=== PATIENT | female | born 1955 | race Caucasian/White ===

== ENCOUNTER 2024-03-26 23:29 | Emergency (ER) | payer MEDICARE, SELFPAY ==
--- NOTE | 2024-03-26 23:31 | ECG_ITS ---
Test Reason : PALPITATIONS Blood Pressure : / mmHG Vent. Rate : 141 BPM Atrial Rate : 000 BPM P-R Int : 000 ms QRS Dur : 096 ms QT Int : 306 ms P-R-T Axes : 000 003 099 degrees QTc Int : 468 ms Atrial fibrillation with rapid ventricular response Incomplete right bundle branch block ST depression, consider subendocardial injury Abnormal QRS-T angle, consider primary T wave abnormality Abnormal ECG No previous ECGs available Referred By: Generic ED Physician Electronically Signed By:JEAN CLAUDE MATTHEW MD
[2024-03-26 23:39] VITALS: BP 126/87; PULSE 111; RESP 16; TEMP 36.3; O2SAT 97; BMI 25.9
[2024-03-27] VITALS (7 sets, daily range): BP systolic 99–128; BP diastolic 66–100; PULSE 62–145; RESP 13–16; TEMP 36.4–36.8; O2SAT 97–98
[2024-03-27 00:02] LABS: MANUAL DIFF FLAG NO
[2024-03-27 00:17] LABS: Alanine Aminotransferase 16 U/L (0-31); Albumin Level 4.2 g/dL (3.5-5.0); Alkaline Phosphatase 79 U/L (39-117); Anion Gap 13 (12-20); Aspartate Amino Transferase 20 U/L (5-31); Bilirubin Total 0.4 mg/dL (0.0-1.0); Blood Urea Nitrogen 10 mg/dL (9-16); Calcium 9.3 mg/dL (8.4-10.2); Carbon Dioxide 24 mmol/L (22-29); Chloride 109 mmol/L (96-108); Creatinine Clr Calc Pharmacy 77.8; Estimated Glomerular Filt Rate > 60; Glucose Random 148 mg/dL (60-115); Potassium 3.2 mmol/L (3.3-5.1); Sodium 143 mmol/L (135-145); Total Protein 7.6 g/dL (6.5-8.0)
[2024-03-27 00:22] LABS: Basophils Absolute Auto 0.1 X10*3/uL (0.0-0.2); Basophils Percent Auto 0.8 % (0-2); Eosinophils Absolute Auto 0.1 X10*3/uL (0.0-0.4); Eosinophils Percent Auto 1.4 % (0-4); Hematocrit 38.4 % (37.0-47.0); Hemoglobin 12.9 g/dl (12.0-16.0); Imm Gran Abs Auto 0.01 X10*3/uL (0.00-0.03); Imm Gran Pct Auto 0.2 % (0.0-0.4); Lymphocytes Absolute Auto 2.2 X10*3/uL (1.2-4.9); Lymphocytes Percent Auto 33.2 % (20-40); Mean Corpuscular HGB Conc 33.6 g/dl (31.0-35.0); Mean Corpuscular Hemoglobin 30.6 pg (27.0-33.0); Mean Corpuscular Volume 91.2 fL (80.0-98.0); Mean Platelet Volume 10.1 fL (9.4-12.3); Monocytes Absolute Auto 0.5 X10*3/uL (0.1-1.2); Neutrophils Absolute Auto 3.7 x10*3/uL (2.0-8.3); Neutrophils Percent Auto 56.4 % (45-73); Platelet Count 299 X10*3/uL (160-400); Red Blood Count 4.21 X10*6/uL (4.20-5.50); Red Cell Distribution Width 13.1 % (11.0-16.0); White Blood Count 6.5 X10*3/uL (4.8-10.8)
[2024-03-27 00:25] LABS: Troponin-I High Sensitivity < 2.7 ng/L (<3.5-17.0)
--- NOTE | 2024-03-27 00:40 | MHC.EDTECH ---
This pct just assumed care of Patient ,Patient was change into hospital attire ,and hooked up to coffee supervisor ,Call sparrow within Pt reach .
[2024-03-27] MEDS: 0.9 % Sodium Chloride 1,000 ML 999 ML IV (00:47)
[2024-03-27] MEDS: dilTIAZem HCL 50 MG/10 ML VIAL 25 MG IVPUSH (00:50)
--- NOTE | 2024-03-27 00:51 | ED_ITS ---
HPI - General Adult General Chief complaint: Arrhythmia/Palpitations Stated complaint: palpatations Time Seen by Provider: 03/27/24 00:26 Source: patient, RN notes reviewed and old records reviewed Mode of arrival: ambulatory Limitations: no limitations History of Present Illness ED Provider: Radha ORANTES narrative: 69-year-old female presents for evaluation of palpitations. Patient reports about an hour prior to arrival she started to feel a fluttering in her chest She states that she has a history of atrial fibrillation 1 time over 10 years ago She reports that she was given Cardizem 25 mg IV and a L of fluid and ?I converted. She reports that she subsequently followed up with Cardiology and had an echocardiogram that was normal again, this was about 10 years ago Currently she denies any specific pain, denies any shortness of breath. Denies any leg swelling, recent travel Denies any history of DVT or PE Related Data Previous Rx's ?Medication ?Instructions ?Recorded diltiazem HCl 120 mg 120 mg PO DAILY #30 caps 03/27/24 capsule,extended release 24 hr (Cartia XT) Allergies Allergy/AdvReac Type Severity Reaction Status Date / Time No Known Allergies Allergy Verified 03/26/24 23:41 Review of Systems 2 Constitutional: Constitutional: Denies body ache(s), Denies chills and Denies fever(s) Eyes: Eyes: Denies blurry vision ENT: Denies vertigo and Denies dizziness Cardiovascular: Cardiovascular: Denies chest pain, Reports rapid heart rate, Reports irregular heart rhythm, Reports palpitations and Denies dyspnea Respiratory: Respiratory: Denies cough and Denies dyspnea Gastrointestinal: Gastrointestinal: Denies abdominal pain, Denies nausea and Denies vomiting Musculoskeletal: Musculoskeletal: Denies back pain Integumentary/Breasts: Skin/Breast: Denies rash Neurologic: Denies vertigo and Denies dizziness Psychiatric: Psychiatric: Denies anxiety Endocrine: Endocrine: Reports palpitations PMFSH Social History Social History Advance Directives: No Do you have a plan to hurt others: No Plan Physical Exam ED Vital Signs: Vital Signs - 24 hr 03/26/24 23:39 03/27/24 00:39 03/27/24 00:50 Temperature 97.3 F 97.6 F Pulse Rate 111 H 145 H 137 H Respiratory Rate 16 16 Blood Pressure 126/87 128/100 H 128/100 H Pulse Oximetry 97 98 Oxygen Delivery Method Room Air Room Air 03/27/24 01:44 03/27/24 01:48 03/27/24 01:58 Temperature 98.2 F Pulse Rate 138 H 109 H 131 H Respiratory Rate 13 14 Blood Pressure 105/76 101/74 Pulse Oximetry 97 Oxygen Delivery Method Room Air BMI result Body Mass Index 25.9 Const General: healthy appearing, comfortable, no acute distress, alert and awake Nutritional Appearance: well nourished Orientation/consciousness: patient oriented x3 HENMT Head: Yes normocephalic and Yes atraumatic Eyes Eyelids: Yes eyelids normal Conjunctivae: conjunctivae normal Sclerae: sclerae normal Corneas: corneas normal Pupils: Equal, round and reactive pupils present EOM: EOMs intact bilaterally Neck Neck: Yes full ROM Resp Effort & Inspection: normal respiratory effort, able to speak in complete sentences, no audible wheezes and not labored Auscultation: clear to auscultation bilaterally Cardio Rate: tachycardic Rhythm: abnormal rhythm and regular rhythm GI Inspection: No distended Palpation (GI): Soft to palpation, not firm, nontender, no guarding and not rigid Skin General skin exam: elasticity normal Neuro General: patient oriented x3 Cranial nerves: Yes Equal, round and reactive pupils present and Yes Bilaterally intact EOM present Cognition (Neuro): normal cognition Extrem Other: Moving all extremities well without any obvious deformities Course Reevaluation(s) Reevaluation #1: Patient received Cardizem IV twice with improvement in her rate but there was no conversion. Discussed with the attending, Dr Vazquez who recommends flecainide 300 mg once as the patient's symptoms started within an hour of arrival. Time: 02:14 Reevaluation #2: Patient's rhythm appears to convert back to sinus rhythm after flecainide. Plan for repeat EKG. The patient feels well has no complaints. She has a establish cardiology with Dr. Brennan in [place]. Plan to discharge the patient with Cardizem 120 mg sustained release and she will follow up with Cardiology Time: 02:42 Medications Administered Discontinued Medications Generic Name Dose Route Start Last Admin Trade Name Freq PRN Reason Stop Dose Admin Diltiazem HCl 25 mg 03/27/24 00:39 03/27/24 00:50 Diltiazem Hcl 50 Mg/10 Ml Vial IVPUSH 03/27/24 00:40 25 mg STAT STA Administration Diltiazem HCl 20 mg 03/27/24 01:39 03/27/24 01:44 Diltiazem Hcl 50 Mg/10 Ml Vial IVPUSH 03/27/24 01:40 20 mg STAT STA Administration Flecainide Acetate 300 mg 03/27/24 01:35 03/27/24 02:10 Flecainide Acetate 50 Mg Tablet PO 03/27/24 01:36 300 mg ONCE ONE Administration Sodium Chloride 1,000 mls @ 999 mls/hr 03/27/24 00:45 03/27/24 02:12 Ns IV 03/27/24 01:45 Infused .Q1H1M BLAZE Infusion Potassium Chloride 40 meq 03/27/24 00:51 03/27/24 01:39 Potassium Chloride Er 20 Meq Tab.Er.Prt PO 03/27/24 00:52 40 meq ONCE ONE Administration Medical Decision Making Medical Decision Making MDM Narrative: 69-year-old female presents for evaluation of palpitations. Her triage EKG shows rapid AFib at 141bpm. She does have a history of this. She is not currently anticoagulated or on any antiarrhythmic medications. Labs are reassuring. Her potassium was low at 3.2 and this was repleted. We will treat with Cardizem 25 mg IV and a L of fluid and re-evaluate. The patient has converted to sinus rhythm with this in the past Differential Diagnosis Differential Diagnoses: The differential diagnosis associated with the presentation includes Atrial fibrillation with RVR Supraventricular tachycardia Arrhythmia Tachycardia Lab Data [facility] Lab Attestation statement: I reviewed the patient's lab results. No leukocytosis or anemia. Normal platelet count. Electrolytes are significant for a potassium of 3.2, chloride just above normal at 109. Glucose is random at 1:48 a.m., no evidence of DKA 03/26/24 23:58 03/26/24 23:58 Labs: Lab Results 03/26/24 Range/Units 23:58 WBC 6.5 (4.8-10.8) X10*3/uL RBC 4.21 (4.20-5.50) X10*6/uL Hgb 12.9 (12.0-16.0) g/dl Hct 38.4 (37.0-47.0) % MCV 91.2 (80.0-98.0) fL MCH 30.6 (27.0-33.0) pg MCHC 33.6 (31.0-35.0) g/dl RDW 13.1 (11.0-16.0) % Plt Count 299 (160-400) X10*3/uL MPV 10.1 (9.4-12.3) fL Immature Gran % (Auto) 0.2 (0.0-0.4) % Neut % (Auto) 56.4 (45-73) % Lymph % (Auto) 33.2 (20-40) % [place] % (Auto) 8.0 (2-11) % Eos % (Auto) 1.4 (0-4) % Baso % (Auto) 0.8 (0-2) % Lymph # (Auto) 2.2 (1.2-4.9) X10*3/uL [place] # (Auto) 0.5 (0.1-1.2) X10*3/uL Eos # (Auto) 0.1 (0.0-0.4) X10*3/uL Baso # (Auto) 0.1 (0.0-0.2) X10*3/uL Abs Immat Gran (auto) 0.01 (0.00-0.03) X10*3/uL Absolute Neuts (auto) 3.7 (2.0-8.3) x10*3/uL Absolute Nucleated RBC 0.000 (0.0-0.012) X10*3/uL Nucleated RBC % (auto) 0.0 (0.0-0.2) /100WBC Sodium 143 (135-145) mmol/L Potassium 3.2 L (3.3-5.1) mmol/L Chloride 109 H (96-108) mmol/L Carbon Dioxide 24 (22-29) mmol/L Anion Gap 13 (12-20) BUN 10 (9-16) mg/dL Creatinine 0.81 (0.5-1.4) mg/dL Estim Creat Clear Calc 77.8 Estimated GFR > 60 Random Glucose 148 H (60-115) mg/dL Calcium 9.3 (8.4-10.2) mg/dL Total Bilirubin 0.4 (0.0-1.0) mg/dL AST 20 (5-31) U/L ALT 16 (0-31) U/L Alkaline Phosphatase 79 (39-117) U/L Troponin I High Sens < 2.7 (<3.5-17.0) ng/L Total Protein 7.6 (6.5-8.0) g/dL Albumin 4.2 (3.5-5.0) g/dL Independent Interpretation I performed an independent interpretation of an: EKG Interpretation: Rapid AFib at 141 beats per minute Discharge Plan Discharge Clinical Impression: Atrial fibrillation with rapid ventricular response Patient Disposition: Home, Self-Care Instructions: A-fib (Atrial Fibrillation) (ED) Additional Instructions: Your workup in the ER today was reassuring. Your EKG showed atrial fibrillation. Your potassium was slightly low at 3.2, I recommend following up with your primary doctor for this. You were given a dose of Cardizem that did not change your rhythm back to normal. You were given a dose of flecainide that did convert you back to a sinus rhythm Follow-up with cardiology for your atrial fibrillation Return for new or worsening symptoms Prescriptions: New diltiazem HCl [Cartia XT] 120 mg capsule,extended release 24hr 120 mg PO DAILY Qty: 30 0RF Referrals: Kevin Brennan MD [Physician] - (a fib) Print Language: Libyan
[2024-03-27] MEDS: Potassium Chloride ER 20 MEQ TAB.ER.PRT 40 MEQ PO (01:39)
[2024-03-27] MEDS: dilTIAZem HCL 50 MG/10 ML VIAL 20 MG IVPUSH (01:44)
[2024-03-27] MEDS: Flecainide Acetate 50 MG TABLET 300 MG PO (02:10)
--- NOTE | 2024-03-27 02:39 | ECG_ITS ---
Test Reason : RYTHEM CHANGE Blood Pressure : / mmHG Vent. Rate : 059 BPM Atrial Rate : 059 BPM P-R Int : 190 ms QRS Dur : 108 ms QT Int : 424 ms P-R-T Axes : 074 -17 041 degrees QTc Int : 419 ms Sinus bradycardia Incomplete right bundle branch block Borderline ECG When compared with ECG of 26-MAR-2024 23:29, Sinus rhythm has replaced Atrial fibrillation Vent. rate has decreased BY [address] no longer depressed in Inferior leads ST no longer depressed in Anterolateral leads Referred By: Collin Garcia Electronically Signed By:JEAN CLAUDE MATTHEW MD
== END 2024-03-27 03:10 | disposition home or self-care (01) ==
PROVIDERS: Emergency Provider Internal Medicine; PCP Internal Medicine
DX: I48.20 Chronic atrial fibrillation, unspecified (principal); I49.9 Cardiac arrhythmia, unspecified; R00.2 Palpitations; Z79.899 Other long term (current) drug therapy
CPT/HCPCS: 36415; 80053; 84484; 85025; 93005; 96374; 96375; 96376; 99284

== ENCOUNTER → 2024-03-26 23:31 | Outpatient (BNV) | payer MEDICARE, SELFPAY | PROVIDERS: Emergency Provider Internal Medicine; PCP Internal Medicine; Visit Provider Internal Medicine Cardiovascular Disease | DX: R00.1 Bradycardia, unspecified (principal); I45.10 Unspecified right bundle-branch block | CPT/HCPCS: 93010 ==

== ENCOUNTER → 2024-03-27 02:39 | Outpatient (BNV) | payer MEDICARE, SELFPAY | PROVIDERS: Emergency Provider Internal Medicine; PCP Internal Medicine; Visit Provider Internal Medicine Cardiovascular Disease | DX: I45.10 Unspecified right bundle-branch block (principal); R00.1 Bradycardia, unspecified | CPT/HCPCS: 93010 ==

== ENCOUNTER 2024-12-22 03:02 | Emergency (ER) | payer MEDICARE, SELFPAY ==
--- NOTE | 2024-12-22 03:03 | ECG_ITS ---
Test Reason : RAPID HEART RATE Blood Pressure : */* mmHG Vent. Rate : 120 BPM Atrial Rate : * BPM P-R Int : * ms QRS Dur : 92 ms QT Int : 302 ms P-R-T Axes : * -3 13 degrees QTcB Int : 426 ms Atrial fibrillation with rapid ventricular response with premature ventricular or aberrantly conducted complexes Incomplete right bundle branch block Nonspecific ST abnormality Abnormal ECG When compared with ECG of 27-Mar-2024 02:45, Atrial fibrillation has replaced Sinus rhythm Vent. rate has increased by 61 bpm Referred By: Generic ED Physician Electronically Signed By: JAMEE LIGHT
[2024-12-22 03:09] VITALS: BP 130/75; PULSE 126; RESP 16; TEMP 36.3; O2SAT 98; BMI 25.1
[2024-12-22 03:17] VITALS: BP 130/75; PULSE 126; RESP 16; TEMP 36.3; O2SAT 98
--- NOTE | 2024-12-22 03:19 | PC.NURSE ---
pt came in from waiting room with heart palpitations, denies chest pain. states she has a fib and takes eliquis and cardizem. Took bot prescribed medications today. 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 Labs ordered, EKG performed.
[2024-12-22 03:31] LABS: MANUAL DIFF FLAG NO
[2024-12-22 03:32] LABS: Hematocrit 37.2 % (37.0-47.0); Hemoglobin 13.0 g/dl (12.0-16.0); Imm Gran Abs Auto 0.01 X10*3/uL (0.00-0.03); Imm Gran Pct Auto 0.1 % (0.0-0.4); Lymphocytes Absolute Auto 3.5 X10*3/uL (1.2-4.9); Mean Corpuscular HGB Conc 34.9 g/dl (31.0-35.0); Mean Corpuscular Hemoglobin 31.2 pg (27.0-33.0); Mean Corpuscular Volume 89.2 fL (80.0-98.0); NRBC Abs Auto 0.000 X10*3/uL (0.0-0.012); NRBC Pct Auto 0.0 /100WBC (0.0-0.2); Platelet Count 288 X10*3/uL (160-400); Red Blood Count 4.17 X10*6/uL (4.20-5.50); White Blood Count 6.7 X10*3/uL (4.8-10.8)
[2024-12-22 03:50] LABS: Alanine Aminotransferase 15 U/L (0-31); Albumin Level 4.3 g/dL (3.5-5.0); Alkaline Phosphatase 89 U/L (39-117); Anion Gap 14 (12-20); Aspartate Amino Transferase 22 U/L (5-31); Blood Urea Nitrogen 9 mg/dL (9-16); Calcium 9.0 mg/dL (8.4-10.2); Carbon Dioxide 25 mmol/L (22-29); Chloride 106 mmol/L (96-108); Creatinine Clr Calc Pharmacy 80.8; Estimated Glomerular Filt Rate > 60; Potassium 4.3 mmol/L (3.3-5.1); Sodium 141 mmol/L (135-145); Total Protein 7.4 g/dL (6.5-8.0)
[2024-12-22 04:01] LABS: Troponin-I High Sensitivity < 2.7 ng/L (<3.5-17.0)
--- NOTE | 2024-12-22 04:23 | ECG_ITS ---
Test Reason : ? a fib Blood Pressure : */* mmHG Vent. Rate : 74 BPM Atrial Rate : 74 BPM P-R Int : 190 ms QRS Dur : 96 ms QT Int : 380 ms P-R-T Axes : 49 -13 22 degrees QTcB Int : 421 ms Normal sinus rhythm Normal ECG When compared with ECG of 22-Dec-2024 03:00, Sinus rhythm has replaced Atrial fibrillation Vent. rate has decreased by 46 bpm Referred By: Generic ED Physician Electronically Signed By: JAMEE LIGHT
--- NOTE | 2024-12-22 07:08 | ED_ITS ---
HPI - General Adult General Chief complaint: Arrhythmia/Palpitations Stated complaint: rapid heart rate Time Seen by Provider: 12/22/24 07:08 History of Present Illness ED Provider: Cristian ORANTES narrative: The patient is a 69-year-old woman with a long history of intermittent paroxysmal atrial fibrillation. She is on diltiazem and apixaban. She says that she woke up this morning with a sense of fluttering in her chest associated with a sense of tachycardia. Her smart watch told her that her heart rate was 150. She brought herself to the emergency room. On arrival she was found to have atrial fibrillation. About an hour later while waiting in the emergency room she felt that her heart rate had normalized and she seemed to returned to a normal sinus rhythm. She has had no associated chest pain, shortness of breath, fever, sweats, chills, or other symptoms. No new pain or swelling in her legs. No shortness of breath. The the patient feels this episode is very similar to previous episodes in his very eager for discharge. She has a recent visit with her call center coordinator and had an unremarkable echocardiogram she says. Related Data Previous Rx's ?Medication ?Instructions ?Recorded diltiazem HCl 120 mg 120 mg PO DAILY #30 caps 03/10 capsule,extended release 24 hr (Cartia XT) Allergies Allergy/AdvReac Type Severity Reaction Status Date / Time No Known Allergies Allergy Verified 12/22/24 03:10 Review of Systems 2 Review of Systems: Yes all other systems are reviewed and are negative PMFSH Social History Social History Smoked in Last 30 Days: No Use of substances other than those prescribed or required for medical reasons: No Advance Directives: No Advance Directives Information Provided: Yes Physical Exam ED Vital Signs: Vital Signs - 24 hr 12/22/24 03:09 12/22/24 03:17 Temperature 97.3 F 97.3 F Pulse Rate 126 H 126 H Respiratory Rate 16 16 Blood Pressure 130/75 130/75 Pulse Oximetry 98 98 Oxygen Delivery Method Room Air Room Air BMI result Body Mass Index 25.1 Const General: cooperative, healthy appearing, comfortable and no acute distress Orientation/consciousness: patient oriented x3 HENMT Head: Yes normal to inspection Face and sinus: Yes normal facial exam Mouth: Normal oral and palatal mucosa present Eyes General: appearance normal, both eyes and all related structures Neck Neck: Yes normal visual inspection, Yes full ROM and Yes no JVD Resp Effort & Inspection: normal respiratory effort Auscultation: clear to auscultation bilaterally Cardio Rate: regular rate Rhythm: regular rhythm Heart sounds: S1 normal heart sound present and S2 normal heart sound present GI Other: Abdomen is soft and nontender Skin General skin exam: no rashes or lesions noted Neuro General: patient oriented x3, tone normal, moves all extremities, no focal motor deficits and CN's II-XI intact bilaterally Extrem Other: There is no calf swelling or tenderness. No asymmetry. No peripheral edema. Medical Decision Making Medical Decision Making [facility] Narrative: The patient is a 69-year-old woman who has a history of rare episodes of intermittent paroxysmal atrial fibrillation who was on diltiazem and apixaban. She awoke with symptoms of atrial fibrillation and came to the hospital. She was in atrial fibrillation with a rapid ventricular response on arrival but was otherwise stable. She was observed and spontaneously converted to a normal sinus rhythm with a normal EKG. She has waited for several hours post conversion to see a provider. She is eager for discharge. She looks entirely well. She should continue her medications of diltiazem and apixaban and stay in touch with the call center coordinator. Lab Data 12/22/24 03:27 12/22/24 03:27 Labs: Lab Results 12/22/24 Range/Units 03:27 WBC 6.7 (4.8-10.8) X10*3/uL RBC 4.17 L (4.20-5.50) X10*6/uL Hgb 13.0 (12.0-16.0) g/dl Hct 37.2 (37.0-47.0) % MCV 89.2 (80.0-98.0) fL MCH 31.2 (27.0-33.0) pg MCHC 34.9 (31.0-35.0) g/dl RDW 13.7 (11.0-16.0) % Plt Count 288 (160-400) X10*3/uL MPV 9.7 (9.4-12.3) fL Immature Gran % (Auto) 0.1 (0.0-0.4) % Neut % (Auto) 37.3 L (45-73) % Lymph % (Auto) 52.0 H (20-40) % [place] % (Auto) 7.6 (2-11) % Eos % (Auto) 2.4 (0-4) % Baso % (Auto) 0.6 (0-2) % Lymph # (Auto) 3.5 (1.2-4.9) X10*3/uL [place] # (Auto) 0.5 (0.1-1.2) X10*3/uL Eos # (Auto) 0.2 (0.0-0.4) X10*3/uL Baso # (Auto) 0.0 (0.0-0.2) X10*3/uL Abs Immat Gran (auto) 0.01 (0.00-0.03) X10*3/uL Absolute Neuts (auto) 2.5 (2.0-8.3) x10*3/uL Absolute Nucleated RBC 0.000 (0.0-0.012) X10*3/uL Nucleated RBC % (auto) 0.0 (0.0-0.2) /100WBC Sodium 141 (135-145) mmol/L Potassium 4.3 D (3.3-5.1) mmol/L Chloride 106 (96-108) mmol/L Carbon Dioxide 25 (22-29) mmol/L Anion Gap 14 (12-20) BUN 9 (9-16) mg/dL Creatinine 0.78 (0.5-1.4) mg/dL Estim Creat Clear Calc 80.8 Estimated GFR > 60 Random Glucose 111 (60-115) mg/dL Calcium 9.0 (8.4-10.2) mg/dL Total Bilirubin 0.7 (0.0-1.0) mg/dL AST 22 (5-31) U/L ALT 15 (0-31) U/L Alkaline Phosphatase 89 (39-117) U/L Troponin I High Sens < 2.7 (<3.5-17.0) ng/L Total Protein 7.4 (6.5-8.0) g/dL Albumin 4.3 (3.5-5.0) g/dL Independent Interpretation I performed an independent interpretation of an: EKG Interpretation: An initial EKG at 03:00 showed atrial fibrillation with a rapid ventricular response at 120 beats per minute. There were nonspecific ST changes. A repeat EKG at 06/21/2003 shows normal sinus rhythm at 74 beats per minute. This is a normal EKG. Discharge Plan Discharge Clinical Impression: Paroxysmal atrial fibrillation Patient Disposition: Home, Self-Care Instructions: Félix-fib (Atrial Fibrillation) (ED) Additional Instructions: You seemed to have converted yourself back to a normal sinus rhythm. Please continue your current medications. Please contact your cardiology office to let them know you had this episode. I am not sure they will make any additional recommendations however but it would be good to let them know. Stay in touch with your regular doctor as well as needed. Return to the emergency room if significantly worse. Prescriptions: No Action diltiazem HCl [Cartia XT] 120 mg capsule,extended release 24hr 120 mg PO DAILY Qty: 30 0RF Referrals: Nicci Dee MD [Primary Care Provider, Internal Medicine] Juan Jose Gentile MD [Physician, Cardiovascular Disease] Print Language: Malaysian
[2024-12-22 07:23] VITALS: BP 130/75; PULSE 126; RESP 16; TEMP 36.3; O2SAT 98
== END 2024-12-22 07:23 | disposition home or self-care (01) ==
PROVIDERS: Emergency Provider Emergency Medicine; PCP Internal Medicine
DX: I48.0 Paroxysmal atrial fibrillation (principal); Z79.01 Long term (current) use of anticoagulants
CPT/HCPCS: 36415; 80053; 84484; 85025; 93005; 99283; 99285

== ENCOUNTER → 2024-12-22 03:03 | Outpatient (BNV) | payer MEDICARE, SELFPAY | PROVIDERS: Emergency Provider Emergency Medicine; PCP Internal Medicine; Visit Provider Internal Medicine | DX: I48.91 Unspecified atrial fibrillation (principal); I45.10 Unspecified right bundle-branch block; Z13.6 Encounter for screening for cardiovascular disorders | CPT/HCPCS: 93010 ==